=== PATIENT | female | born 1990 | race Caucasian/White ===

== ENCOUNTER 2016-07-10 11:12 | Emergency (ER) | payer BC ==
[~2016-07-10 11:12] MED LIST: NORCO 5/325 TAB1 TAB PO
[2016-07-10] MEDS ORDERED: KEFLEX500 M4 PO (12:23)
== END 2016-07-10 12:57 ==
LOC: EDMED 11:12
DX: L02.211 Cutaneous abscess of abdominal wall (principal)